=== PATIENT | male | born 1965 | race Two or more races ===

== ENCOUNTER 2024-12-02 14:47 | Inpatient (IN) | payer OTHER ==
[~2024-12-02] VITALS: Ht 152.4 cm; Wt 117.9 kg
[2024-12-02] MEDS ORDERED: ARBLI10 MG/1 ML PO (18:23)
[2024-12-02] MEDS ORDERED: ATORVASTATIN CA10 MG PO (18:24)
[2024-12-02] MEDS ORDERED: ZYLOPRIM100 M1 (18:24)
[2024-12-02] MEDS ORDERED: SYNJARDY 12.5-1 EACH PO (18:24)
[2024-12-02] MEDS ORDERED: AMLODIPINE-OLM1 EAC2 (18:24)
[2024-12-02] MEDS ORDERED: CHILDREN'S ASPI81 MG (18:25)
[2024-12-02] MEDS ORDERED: GRALISE600 MG PO (18:25)
[2024-12-02] MEDS ORDERED: TAMS0.4C PO (18:25)
--- NOTE | 2024-12-02 18:26 | NUR ---
SE RECIBE PACIENTE ALERTA Y CONCIENTE X3. EL MISMO REFIERE TENER UN ABSCESO EN BUCKY DE LOS PHALANGES DISTALES DEL PIES. SE OBSERVA INFLAMADO, ENROJECIDO, AMARILLO, PALIDO Y NECROTICO. SE PROPCEDE A RAVI S/V AL PACIENTE Y SE UBICA EN PASILLO. SE BOBBY CUIDADO EN EL AREA.
[2024-12-02] MEDS ORDERED: 0.9 % SODIUM CHLORIDE 1,000 ML IV SCH ×2 (19:00→23:30)
[2024-12-02] MEDS ORDERED: VANCOMYCIN HCL 1,000 MG VIAL IV ONE (19:00)
--- NOTE | 2024-12-02 19:24 | NUR ---
SE EDUCA A PTE SOBRE TX MEDICO, SE ED MUESTRAS DE LABORATORIO UTILIZANDO MEDIDAS ASEPTICAS. SE COLOCA H/L YNES DE EDEMA. SE ADMINISTRAN MEDICAMENTOS SOFIA ORDEN MEDICA. SE NOTIFICA RX PENDIENTE.
[2024-12-02 19:34] LABS: BASO % 0.6 % (0.1-1.2); EOS # 0.56 (0.04-0.54); EOS % 6.7 % (0.7-7.0); LYMPH # 1.86 (1.18-3.74); LYMPH % 22.1 % (19.3-53.1); MEAN PLATELET VOLUME 11.20 fl (9.4-12.4); MONO # 0.76 (0.24-0.82); MONO % 9.0 % (4.7-12.5); NEUT # 5.17 (1.56-6.13); NEUT % 61.4 % (34.0-71.1); RED CELL DISTRIBUTION WIDTH 15.2 % (11.6-14.4)
[2024-12-02 19:36] LABS: ERYTHROCYTE SEDIMENTATION RATE 41 mm/hr (0-20)
[2024-12-02 19:55] LABS: ALT/SGPT 22.0 U/L (12-78); AST/SGOT 13.0 U/L (15-37); BILIRUBIN TOTAL 0.32 mg/dL (0.3-1.2); BUN CREA RATIO 19.0 (7.0-25.0); CREATININE SERUM 2.08 mg/dL (0.70-1.30); GFR 33.08; GLOBULINA 4.0 G/DL (2.4-3.5)
[2024-12-02 19:57] LABS: OSMOLALITY SERUM 302.0 MOSM/KG (275-295)
[2024-12-02 19:58] LABS: GLUCOSE FASTING 226.0 mg/dL (65-100)
[2024-12-02] MEDS ORDERED: CEFTRIAXONE SODIUM 2,000 MG in 0.9 % SODIUM CHLORIDE 100 ML IV SCH (23:19)
[2024-12-02] MEDS ORDERED: GABAPENTIN 600 MG TABLET PO SCH (23:20)
[2024-12-02] MEDS ORDERED: ACETAMINOPHEN 500 MG GEL..CAP PO PRN (23:30)
[2024-12-03 02:00] VITALS: BP 100/60
[2024-12-03 07:22] LABS: INR < 0.93
[2024-12-03 07:55] LABS: URINE APPEARANCE Clear; URINE BILIRRUBIN Negative (NEGATIVE); URINE BLOOD Negative; URINE COLOR Yellow; URINE KETONE Negative (NEGATIVE); URINE LEUKOCYTE Negative; URINE NITRATE Negative; URINE PROTEIN Trace (NEGATIVE); URINE UROBILINOGEN 0.2 E.U./dl
[2024-12-03 07:58] LABS: URINE BACTERIA 4.7 uL (0.0-1933)
[2024-12-03 07:59] LABS: URINE CAST 0.00 uL (0.0-1.40); URINE EPITHELIAL CELLS 1.3 uL (0.0-38.8); URINE GLUCOSE >=1000 MG/DL (NEGATIVE); URINE RBC 1.0 uL (0.0-20.8); URINE WBC 1.2 uL (0.0-23.2)
[2024-12-03 08:12] VITALS: BP 132/88; O2SAT 100
[2024-12-03] MEDS ORDERED: FAMOTIDINE/PF 20 MG in 0.9 % SODIUM CHLORIDE 8 ML IV PUSH SCH (09:00)
[2024-12-03] MEDS ORDERED: ATORVASTATIN CALCIUM 20 MG TABLET PO SCH (09:00)
[2024-12-03] MEDS ORDERED: ENOXAPARIN SODIUM 30 MG/0.3 ML SYRINGE SUBCUTANEO SCH (09:00)
[2024-12-03] MEDS ORDERED: VANCOMYCIN HCL 1,000 MG VIAL IV SCH (09:00)
[2024-12-03] MEDS ORDERED: AMLODIPINE BESYLATE 5 MG TABLET PO SCH (09:00)
[2024-12-03] MEDS ORDERED: INSULIN LISPRO 1,000 UNIT/10 ML UNITS SUBCUTANEO PRN (10:30)
[2024-12-03] MEDS ORDERED: DEXTROSE 50 % IN WATER 0.5 G/ML DISP.SYRIN IV PRN (10:30)
[2024-12-03] MEDS ORDERED: DEXTROSE 50 % IN WATER 0.5 G/ML VIAL IV PRN (14:30)
[2024-12-03 15:43] VITALS: BP 120/62; O2SAT 100
[2024-12-03] MEDS ORDERED: SODIUM CHLORIDE 0.45 % 1,000 ML IV SCH (18:30)
[2024-12-04] VITALS: BP 165/87; O2SAT 96
[2024-12-04 08:18] LABS: BASO % 0.9 % (0.1-1.2); EOS # 0.57 (0.04-0.54); EOS % 7.4 % (0.7-7.0); LYMPH # 2.32 (1.18-3.74); LYMPH % 30.0 % (19.3-53.1); MEAN PLATELET VOLUME 11.50 fl (9.4-12.4); MONO # 0.80 (0.24-0.82); MONO % 10.3 % (4.7-12.5); NEUT # 3.96 (1.56-6.13); NEUT % 51.1 % (34.0-71.1); RED CELL DISTRIBUTION WIDTH 15.3 % (11.6-14.4)
[2024-12-04 08:34] VITALS: BP 140/81; O2SAT 100
[2024-12-04 08:34] LABS: ALT/SGPT 22.0 U/L (12-78); AST/SGOT 13.0 U/L (15-37); BILIRUBIN TOTAL 0.37 mg/dL (0.3-1.2); BUN CREA RATIO 19.0 (7.0-25.0); CHOL HDL RATIO 2.2 (0-5.0); CREATININE SERUM 1.46 mg/dL (0.70-1.30); GFR 49.76; GLOBULINA 4.2 G/DL (2.4-3.5); GLUCOSE FASTING 137.0 mg/dL (65-100); HDL 67.0 mg/dl (40-60); LDL 60.0 mg/dl (0-130); OSMOLALITY SERUM 291.0 MOSM/KG (275-295); VLDL 19.0 (0-39)
[2024-12-04] MEDS ORDERED: ASPIRIN 81 MG TABLET.EC PO SCH (09:00)
[2024-12-04] MEDS ORDERED: LINEZOLID 600 MG TABLET PO SCH (09:00)
[2024-12-04 14:45] VITALS: BP 151/84; O2SAT 98
[2024-12-04 19:13] VITALS: BP 160/85; O2SAT 100
[2024-12-05 01:00] VITALS: BP 165/80
[2024-12-05] MEDS ORDERED: ENOXAPARIN SODIUM 40 MG/0.4 ML SYRINGE SUBCUTANEO SCH (09:00)
[2024-12-05 09:45] VITALS: BP 168/100; O2SAT 97
[2024-12-05] MEDS ORDERED: LOSARTAN POTASSIUM 100 MG TABLET PO NR (12:45)
[2024-12-05] MEDS ORDERED: AMLODIPINE BESYLATE 10 MG TABLET PO SCH (17:00)
[2024-12-05] MEDS ORDERED: AMLODIPINE BESYLATE 5 MG TABLET PO SCH (17:00)
[2024-12-05 18:38] VITALS: BP 157/85; O2SAT 97
[2024-12-06 01:48] VITALS: BP 161/83
[2024-12-06 08:00] VITALS: BP 158/99; O2SAT 100
[2024-12-06] MEDS ORDERED: INSULIN NPH HUM/REG INSULIN HM 1,000 UNIT/10 ML UNITS SUBCUTANEO SCH (08:00)
[2024-12-06] MEDS ORDERED: LOSARTAN POTASSIUM 100 MG TABLET PO SCH (09:00)
[2024-12-06 16:59] VITALS: BP 151/96; O2SAT 97
[2024-12-06] MEDS ORDERED: DOXAZOSIN MESYLATE 2 MG TABLET PO SCH (17:00)
[2024-12-07 03:36] VITALS: BP 132/67; O2SAT 96
[2024-12-07 08:06] LABS: BASO % 0.8 % (0.1-1.2); EOS # 0.37 (0.04-0.54); EOS % 6.2 % (0.7-7.0); LYMPH # 2.14 (1.18-3.74); LYMPH % 35.9 % (19.3-53.1); MEAN PLATELET VOLUME 12.10 fl (9.4-12.4); MONO # 0.63 (0.24-0.82); MONO % 10.6 % (4.7-12.5); NEUT # 2.75 (1.56-6.13); NEUT % 46.2 % (34.0-71.1); RED CELL DISTRIBUTION WIDTH 14.6 % (11.6-14.4)
[2024-12-07 08:28] LABS: ALT/SGPT 23.0 U/L (12-78); AST/SGOT 12.0 U/L (15-37); BILIRUBIN TOTAL 0.3 mg/dL (0.3-1.2); BUN CREA RATIO 17.0 (7.0-25.0); CREATININE SERUM 1.63 mg/dL (0.70-1.30); GFR 43.82; GLOBULINA 3.5 G/DL (2.4-3.5); GLUCOSE FASTING 137.0 mg/dL (65-100); OSMOLALITY SERUM 294.0 MOSM/KG (275-295)
[2024-12-07 10:27] VITALS: BP 159/77
[2024-12-07] MEDS ORDERED: INSULIN NPH HUM/REG INSULIN HM 1,000 UNIT/10 ML UNITS SUBCUTANEO SCH (17:00)
[2024-12-07 19:20] VITALS: BP 144/79
[2024-12-08 03:00] VITALS: BP 152/88; O2SAT 97
[2024-12-08 07:46] LABS: ALT/SGPT 30.0 U/L (12-78); AST/SGOT 17.0 U/L (15-37); BILIRUBIN TOTAL 0.17 mg/dL (0.3-1.2); BUN CREA RATIO 20.0 (7.0-25.0); CREATININE SERUM 1.55 mg/dL (0.70-1.30); GFR 46.45; GLOBULINA 3.5 G/DL (2.4-3.5); GLUCOSE FASTING 175.0 mg/dL (65-100); OSMOLALITY SERUM 292.0 MOSM/KG (275-295)
[2024-12-08 09:05] VITALS: BP 155/74
[2024-12-08 17:59] VITALS: BP 163/66
[2024-12-09 00:43] VITALS: BP 132/82; O2SAT 95
[2024-12-09 08:53] VITALS: BP 146/78; O2SAT 99
[2024-12-09] MEDS ORDERED: FAMOTIDINE/PF 20 MG/2 ML VIAL IV PUSH ONE (09:45)
[2024-12-09 18:17] VITALS: BP 136/67
[2024-12-10 02:23] VITALS: BP 131/72; O2SAT 94
[2024-12-10 05:21] LABS: BASO % 0.8 % (0.1-1.2); EOS # 0.36 (0.04-0.54); EOS % 5.8 % (0.7-7.0); LYMPH # 2.18 (1.18-3.74); LYMPH % 35.0 % (19.3-53.1); MEAN PLATELET VOLUME 11.50 fl (9.4-12.4); MONO # 0.70 (0.24-0.82); MONO % 11.2 % (4.7-12.5); NEUT # 2.92 (1.56-6.13); NEUT % 46.9 % (34.0-71.1); RED CELL DISTRIBUTION WIDTH 14.3 % (11.6-14.4)
[2024-12-10 05:49] LABS: ALT/SGPT 44.0 U/L (12-78); AST/SGOT 24.0 U/L (15-37); BILIRUBIN TOTAL 0.31 mg/dL (0.3-1.2); BUN CREA RATIO 20.0 (7.0-25.0); CREATININE SERUM 1.71 mg/dL (0.70-1.30); GFR 41.47; GLOBULINA 3.4 G/DL (2.4-3.5); GLUCOSE FASTING 125.0 mg/dL (65-100); OSMOLALITY SERUM 293.0 MOSM/KG (275-295)
[2024-12-10 08:00] VITALS: BP 152/82
[2024-12-10] MEDS ORDERED: FAMOTIDINE/PF 20 MG in 0.9 % SODIUM CHLORIDE 8 ML IV PUSH SCH (09:00)
[2024-12-10 19:24] VITALS: BP 123/71; O2SAT 98
[2024-12-11 01:42] VITALS: BP 146/72; O2SAT 97
[2024-12-11 09:46] VITALS: BP 160/71
[2024-12-11 18:03] VITALS: BP 164/80; O2SAT 97
[2024-12-11 20:37] LABS: ALT/SGPT 42.0 U/L (12-78); AST/SGOT 22.0 U/L (15-37); BILIRUBIN TOTAL 0.19 mg/dL (0.3-1.2); BUN CREA RATIO 19.0 (7.0-25.0); CREATININE SERUM 1.91 mg/dL (0.70-1.30); GLOBULINA 3.3 G/DL (2.4-3.5); OSMOLALITY SERUM 295.0 MOSM/KG (275-295)
[2024-12-11 20:53] LABS: GFR 36.5; GLUCOSE FASTING 255.0 mg/dL (65-100)
[2024-12-12 02:28] VITALS: BP 151/86; O2SAT 98
[2024-12-12 07:06] LABS: BASO % 1.0 % (0.1-1.2); EOS # 0.31 (0.04-0.54); EOS % 5.1 % (0.7-7.0); LYMPH # 1.67 (1.18-3.74); LYMPH % 27.6 % (19.3-53.1); MEAN PLATELET VOLUME 12.50 fl (9.4-12.4); MONO # 0.64 (0.24-0.82); MONO % 10.6 % (4.7-12.5); NEUT # 3.36 (1.56-6.13); NEUT % 55.4 % (34.0-71.1); RED CELL DISTRIBUTION WIDTH 14.4 % (11.6-14.4)
[2024-12-12] MEDS ORDERED: INSULIN NPH HUM/REG INSULIN HM 1,000 UNIT/10 ML UNITS SUBCUTANEO SCH ×2 (08:00→17:00)
[2024-12-12 08:06] LABS: EOSINOPHIL MAN 6.0 %; LYMPHOCYTE MAN 37.0 %; MONOCYTE MAN 10.0 %; NEUTROPHILS MAN 46.0 %
[2024-12-12 08:12] LABS: ALT/SGPT 44.0 U/L (12-78); AST/SGOT 25.0 U/L (15-37); BILIRUBIN TOTAL 0.19 mg/dL (0.3-1.2); BUN CREA RATIO 23.0 (7.0-25.0); CREATININE SERUM 1.42 mg/dL (0.70-1.30); GFR 51.39; GLOBULINA 3.6 G/DL (2.4-3.5); GLUCOSE FASTING 131.0 mg/dL (65-100); OSMOLALITY SERUM 290.0 MOSM/KG (275-295)
[2024-12-12] MEDS ORDERED: DOXAZOSIN MESYLATE 4 MG TABLET PO SCH (09:00)
[2024-12-12] MEDS ORDERED: SODIUM POLYSTYRENE SULFONATE 30G/8 TSP PO STA (10:34)
[2024-12-12 10:51] VITALS: BP 170/83; O2SAT 98
[2024-12-12] MEDS ORDERED: DOXAZOSIN MESYLATE 8 MG TABLET PO SCH (17:00)
[2024-12-12 17:14] VITALS: BP 160/81; O2SAT 99
[2024-12-12] MEDS ORDERED: SODIUM POLYSTYRENE SULFONATE 15 G/4 TSP TSP PO ONE (18:00)
[2024-12-13 02:18] VITALS: BP 172/90; O2SAT 94
[2024-12-13 07:20] LABS: BUN CREA RATIO 28.0 (7.0-25.0); CREATININE SERUM 1.37 mg/dL (0.70-1.30); GFR 53.56; GLUCOSE FASTING 123.0 mg/dL (65-100); OSMOLALITY SERUM 295.0 MOSM/KG (275-295)
[2024-12-13 09:21] VITALS: BP 150/83; O2SAT 99
[2024-12-13 20:56] VITALS: BP 117/66; O2SAT 94
[2024-12-13] MEDS ORDERED: TRAMADOL HCL 50 MG TABLET PO PRN (22:15)
[2024-12-14 02:48] VITALS: BP 124/57; O2SAT 96
[2024-12-14] MEDS ORDERED: CLOPIDOGREL BISULFATE 75 MG TABLET PO SCH (09:00)
[2024-12-14] MEDS ORDERED: ASPIRIN 81 MG TABLET.EC PO SCH (09:00)
[2024-12-14 09:02] LABS: BASO % 0.4 % (0.1-1.2); EOS # 0.24 (0.04-0.54); EOS % 3.6 % (0.7-7.0); LYMPH # 1.06 (1.18-3.74); LYMPH % 15.7 % (19.3-53.1); MEAN PLATELET VOLUME 11.50 fl (9.4-12.4); MONO # 0.78 (0.24-0.82); MONO % 11.6 % (4.7-12.5); NEUT # 4.62 (1.56-6.13); NEUT % 68.6 % (34.0-71.1); RED CELL DISTRIBUTION WIDTH 14.5 % (11.6-14.4)
[2024-12-14 09:24] VITALS: BP 160/78
[2024-12-14 09:43] LABS: ALT/SGPT 51.0 U/L (12-78); AST/SGOT 23.0 U/L (15-37); BILIRUBIN TOTAL 0.45 mg/dL (0.3-1.2); BUN CREA RATIO 23.0 (7.0-25.0); CREATININE SERUM 1.35 mg/dL (0.70-1.30); GFR 54.47; GLOBULINA 3.3 G/DL (2.4-3.5); GLUCOSE FASTING 86.0 mg/dL (65-100); OSMOLALITY SERUM 289.0 MOSM/KG (275-295)
[2024-12-14] MEDS ORDERED: SODIUM POLYSTYRENE SULFONATE 30G/8 TSP PO NR (13:00)
[2024-12-14 18:08] VITALS: BP 144/73
[2024-12-14] MEDS ORDERED: PANTOPRAZOLE SODIUM 40 MG TABLET.DR PO SCH (21:16)
[2024-12-15 00:34] VITALS: BP 150/71
[2024-12-15 09:25] VITALS: BP 167/82
[2024-12-15 18:29] VITALS: BP 176/74
[2024-12-15] MEDS ORDERED: SODIUM CHLORIDE 0.45 % 1,000 ML IV SCH (18:30)
[2024-12-16 00:40] VITALS: BP 145/74
[2024-12-16 06:30] LABS: BASO % 0.8 % (0.1-1.2); EOS # 0.31 (0.04-0.54); EOS % 5.0 % (0.7-7.0); LYMPH # 1.81 (1.18-3.74); LYMPH % 29.4 % (19.3-53.1); MEAN PLATELET VOLUME 11.50 fl (9.4-12.4); MONO # 0.71 (0.24-0.82); MONO % 11.5 % (4.7-12.5); NEUT # 3.25 (1.56-6.13); NEUT % 53.0 % (34.0-71.1); RED CELL DISTRIBUTION WIDTH 14.4 % (11.6-14.4)
[2024-12-16 07:15] LABS: ALT/SGPT 45.0 U/L (12-78); AST/SGOT 24.0 U/L (15-37); BILIRUBIN TOTAL 0.26 mg/dL (0.3-1.2); BUN CREA RATIO 21.0 (7.0-25.0); CREATININE SERUM 1.53 mg/dL (0.70-1.30); GFR 47.15; GLOBULINA 3.3 G/DL (2.4-3.5); GLUCOSE FASTING 120.0 mg/dL (65-100); OSMOLALITY SERUM 293.0 MOSM/KG (275-295)
[2024-12-16] MEDS ORDERED: NIFEDIPINE 90 MG TAB.SA.OSM PO SCH (09:00)
[2024-12-16 10:27] VITALS: BP 156/78; O2SAT 98
[2024-12-16] MEDS ORDERED: SODIUM POLYSTYRENE SULFONATE 30G/8 TSP PO STA (10:58)
[2024-12-16] MEDS ORDERED: SODIUM POLYSTYRENE SULFONATE 15 G/4 TSP TSP PO SCH (17:00)
[2024-12-16 19:21] VITALS: BP 150/72
[2024-12-17 02:39] VITALS: BP 134/74; O2SAT 91
[2024-12-17 08:45] VITALS: BP 135/77; O2SAT 93
[2024-12-17 19:51] VITALS: BP 139/78
[2024-12-18 02:33] VITALS: BP 133/72; O2SAT 95
[2024-12-18 06:21] LABS: BASO % 0.6 % (0.1-1.2); EOS # 0.29 (0.04-0.54); EOS % 4.4 % (0.7-7.0); LYMPH # 2.14 (1.18-3.74); LYMPH % 32.5 % (19.3-53.1); MEAN PLATELET VOLUME 11.60 fl (9.4-12.4); MONO # 0.88 (0.24-0.82); NEUT # 3.23 (1.56-6.13); NEUT % 48.9 % (34.0-71.1); RED CELL DISTRIBUTION WIDTH 14.3 % (11.6-14.4)
[2024-12-18 06:38] LABS: MONO % 13.4 % (4.7-12.5)
[2024-12-18 06:55] LABS: ALT/SGPT 43.0 U/L (12-78); AST/SGOT 25.0 U/L (15-37); BILIRUBIN TOTAL 0.28 mg/dL (0.3-1.2); BUN CREA RATIO 20.0 (7.0-25.0); CREATININE SERUM 1.6 mg/dL (0.70-1.30); GFR 44.77; GLOBULINA 3.4 G/DL (2.4-3.5); GLUCOSE FASTING 129.0 mg/dL (65-100); OSMOLALITY SERUM 288.0 MOSM/KG (275-295)
[2024-12-18 08:39] VITALS: BP 144/67
[2024-12-18] MEDS ORDERED: SODIUM POLYSTYRENE SULFONATE 30G/8 TSP PO STA (10:47)
[2024-12-18] MEDS ORDERED: SODIUM POLYSTYRENE SULFONATE 15 G/4 TSP TSP PO SCH (17:00)
[2024-12-18 18:07] VITALS: BP 155/76; O2SAT 97
[2024-12-19 03:05] VITALS: BP 167/88; O2SAT 95
[2024-12-19 05:23] LABS: ALT/SGPT 36.0 U/L (12-78); AST/SGOT 16.0 U/L (15-37); BILIRUBIN TOTAL 0.15 mg/dL (0.3-1.2); BUN CREA RATIO 19.0 (7.0-25.0); CREATININE SERUM 1.65 mg/dL (0.70-1.30); GFR 43.21; GLOBULINA 3.3 G/DL (2.4-3.5); GLUCOSE FASTING 123.0 mg/dL (65-100); OSMOLALITY SERUM 291.0 MOSM/KG (275-295)
[2024-12-19] MEDS ORDERED: INSULIN NPH HUM/REG INSULIN HM 1,000 UNIT/10 ML UNITS SUBCUTANEO SCH (08:00)
[2024-12-19] MEDS ORDERED: INSULIN LISPRO 1,000 UNIT/10 ML UNITS SUBCUTANEO PRN (08:15)
[2024-12-19 08:53] VITALS: BP 157/73
[2024-12-19] MEDS ORDERED: CLOPIDOGREL BIS75 MG PO (12:19)
[2024-12-19] MEDS ORDERED: DOXAZOSIN MESYLA8 MG PO (12:19)
[2024-12-19] MEDS ORDERED: LIPITOR20 MG PO (12:19)
[2024-12-19] MEDS ORDERED: ST. JOSEPH ASPI81 M2 PO (12:20)
[2024-12-19] MEDS ORDERED: PROCARDIA XL90 MG PO (12:20)
[2024-12-19] MEDS ORDERED: HYDRALAZINE HCL50 MG PO (12:20)
[2024-12-19] MEDS ORDERED: NEURONTIN600 MG PO (12:20)
[2024-12-19] MEDS ORDERED: TRAMADOL HCL50 MG PO (12:21)
[2024-12-19] MEDS ORDERED: SYNJARDY 12.5-1 EACH PO (12:21)
[2024-12-19] MEDS ORDERED: KALEXATE15 GM PO (12:22)
[2024-12-19] MEDS ORDERED: ZYLOPRIM100 M1 PO (12:22)
== END 2024-12-19 14:36 | disposition home or self-care (01) | DRG 271 ==
LOC: ER 14:47 → SEC-K 23:22 → MEDJ 23:22
PROVIDERS: General Practice; Internal Medicine; ADMIT Internal Medicine; ATTEND Internal Medicine
PROC: B54DZZZ Ultrasonography of Bilateral Lower Extremity Veins (ICD-10-PCS; 2024-12-02)
PROC: B44HZZZ Ultrasonography of Bilateral Lower Extremity Arteries (ICD-10-PCS; 2024-12-02)
PROC: BQ3LZZZ Magnetic Resonance Imaging (MRI) of Right Foot (ICD-10-PCS; 2024-12-04)
PROC: 04CK3ZZ Extirpation of Matter from Right Femoral Artery, Percutaneous Approach (ICD-10-PCS; principal; 2024-12-13)
PROC: 04CP3ZZ Extirpation of Matter from Right Anterior Tibial Artery, Percutaneous Approach (ICD-10-PCS; 2024-12-13)
PROC: 04CM3ZZ Extirpation of Matter from Right Popliteal Artery, Percutaneous Approach (ICD-10-PCS; 2024-12-13)
PROC: 047M3DZ Dilation of Right Popliteal Artery with Intraluminal Device, Percutaneous Approach (ICD-10-PCS; 2024-12-13)
PROC: 047K3DZ Dilation of Right Femoral Artery with Intraluminal Device, Percutaneous Approach (ICD-10-PCS; 2024-12-13)
PROC: 047P3ZZ Dilation of Right Anterior Tibial Artery, Percutaneous Approach (ICD-10-PCS; 2024-12-13)
PROC: BW21YZZ Computerized Tomography (CT Scan) of Abdomen and Pelvis using Other Contrast (ICD-10-PCS; 2024-12-13)
PROC: BT43ZZZ Ultrasonography of Bilateral Kidneys (ICD-10-PCS; 2024-12-18)
DX: E11.52 Type 2 diabetes mellitus with diabetic peripheral angiopathy with gangrene (principal); L02.611 Cutaneous abscess of right foot; M86.171 Other acute osteomyelitis, right ankle and foot; L97.518 Non-pressure chronic ulcer of other part of right foot with other specified severity; N17.9 Acute kidney failure, unspecified; I70.291 Other atherosclerosis of native arteries of extremities, right leg; E11.621 Type 2 diabetes mellitus with foot ulcer; L03.031 Cellulitis of right toe; E87.5 Hyperkalemia; K61.39 Other ischiorectal abscess; D64.9 Anemia, unspecified; I12.9 Hypertensive chronic kidney disease with stage 1 through stage 4 chronic kidney disease, or unspecified chronic kidney disease; E11.22 Type 2 diabetes mellitus with diabetic chronic kidney disease; E11.65 Type 2 diabetes mellitus with hyperglycemia; N18.32 Chronic kidney disease, stage 3b; E78.5 Hyperlipidemia, unspecified; Z79.84 Long term (current) use of oral hypoglycemic drugs; B95.1 Streptococcus, group B, as the cause of diseases classified elsewhere; Z87.891 Personal history of nicotine dependence
CPT/HCPCS: 73725

== ENCOUNTER 2025-02-07 11:08 | Emergency (ER) | payer OTHER ==
[~2025-02-07] VITALS: Ht 185.4 cm; Wt 113.4 kg
[~2025-02-07 11:08] MED LIST: AMLODIPINE-OLM1 EAC2; ARBLI10 MG/1 ML PO; ATORVASTATIN CA10 MG PO; CHILDREN'S ASPI81 MG; CLOPIDOGREL BIS75 MG PO; DOXAZOSIN MESYLA8 MG PO; GRALISE600 MG PO; HYDRALAZINE HCL50 MG PO; KALEXATE15 GM PO; LIPITOR20 MG PO; NEURONTIN600 MG PO; PROCARDIA XL90 MG PO; ST. JOSEPH ASPI81 M2 PO; SYNJARDY 12.5-1 EACH PO; TAMS0.4C PO; TRAMADOL HCL50 MG PO; ZYLOPRIM100 M1; ZYLOPRIM100 M1 PO
[2025-02-07 13:16] LABS: BASO % 0.7 % (0.1-1.2); EOS # 0.45 (0.04-0.54); EOS % 6.6 % (0.7-7.0); LYMPH # 1.83 (1.18-3.74); LYMPH % 26.8 % (19.3-53.1); MEAN PLATELET VOLUME 10.30 fl (9.4-12.4); MONO # 0.41 (0.24-0.82); MONO % 6.0 % (4.7-12.5); NEUT # 4.06 (1.56-6.13); NEUT % 59.6 % (34.0-71.1); RED CELL DISTRIBUTION WIDTH 13.8 % (11.6-14.4)
[2025-02-07 13:40] LABS: ALT/SGPT 40.0 U/L (12-78); AST/SGOT 23.0 U/L (15-37); BILIRUBIN TOTAL 0.35 mg/dL (0.3-1.2); BUN CREA RATIO 15.0 (7.0-25.0); CREATININE SERUM 1.75 mg/dL (0.70-1.30); GFR 40.23; GLOBULINA 4.2 G/DL (2.4-3.5); GLUCOSE FASTING 189.0 mg/dL (65-100); OSMOLALITY SERUM 295.0 MOSM/KG (275-295)
[2025-02-07] MEDS ORDERED: CEFTRIAXONE SODIUM 1,000 MG VIAL ONE (15:12)
[2025-02-07] MEDS ORDERED: CEFTRIAXONE SODIUM 1,000 MG VIAL IV ONE (15:15)
== END 2025-02-07 16:13 | disposition home or self-care (01) ==
LOC: ER 11:08
PROVIDERS: Emergency Medicine
DX: J10.1 Influenza due to other identified influenza virus with other respiratory manifestations (principal); Z20.822 Contact with and (suspected) exposure to COVID-19